=== PATIENT | female | born 1960 | race Caucasian/White ===

== ENCOUNTER 2020-01-06 13:36 | Emergency (ER) | payer MEDICARE, OTHER ==
--- NOTE | 2020-01-06 14:21 | RAD ---
XR Ankle Rt 3 View STANDARD HISTORY: Fall, right ankle pain FINDINGS: No fracture or dislocation is identified. The ankle mortise is maintained.
--- NOTE | 2020-01-06 14:26 | RAD ---
XR Knee Lt 4 View STANDARD HISTORY: Fall, left knee pain FINDINGS: No fracture or dislocation is identified.
[2020-01-06] MEDS ORDERED: Ibuprofen 400 MG TAB ONE (15:23)
== END 2020-01-06 15:45 | disposition home or self-care (01) ==
LOC: MADERS 13:36
DX: S93.401A Sprain of unspecified ligament of right ankle, initial encounter (principal); S80.02XA Contusion of left knee, initial encounter; M06.9 Rheumatoid arthritis, unspecified; J44.9 Chronic obstructive pulmonary disease, unspecified; Z87.891 Personal history of nicotine dependence; Z79.51 Long term (current) use of inhaled steroids; Z79.52 Long term (current) use of systemic steroids; W10.9XXA Fall (on) (from) unspecified stairs and steps, initial encounter